=== PATIENT | male | born 1940 | race Caucasian/White ===

== ENCOUNTER → 2017-04-13 | Outpatient (CLI) | payer MEDICARE, OTHER ==
[~2017-04-13] MED LIST: AVALIDE 12.5 MG1 TAB PO; BACLOFEN 10MG T10 MG PO; DANTRIUM25 M1 PO; FLAGYL250 MG PO; K-DUR 2020 MEQ PO; LOMOTIL 0.025 M1 TAB PO; LOMOTIL 2.5MG.2.5 MG PO; METOPROLOL SUC100 M1 PO; NEURONTIN400 MG PO; NEURONTIN600 M1 PO; PAXIL20 MG PO; PLAVIX75 MG PO; QVAR8.7 G1 IH; TRAZODONE50 MG PO; TRICOR 145 MG145 MG PO; VANCOCIN HCL P250 MG PO; ZANTAC 150150 MG PO; ZOCOR40 MG PO
--- NOTE | 2017-04-13 13:00 | RADIOLOGY REPORT PS360 ---
CHEST-AP VIEW ONLY HISTORY: Infection with elevated white blood cell count BANDEMIA,hx of cva ORDERING PHYSICIAN: Sonam Laughlin MD PATIENT AGE: 76 years COMPARISON: 07/28/2016 FINDINGS: The cardiomediastinal silhouette and pulmonary vascularity are within normal limits. The lungs are clear without infiltrates, suspicious nodules, or pleural effusions. There is an old left proximal humerus fracture. There is mild prominence of the aortic knob. IMPRESSION: No change with no acute finding
--- NOTE | 2017-04-13 13:02 | RADIOLOGY REPORT PS360 ---
SINUS SERIES 3 VIEWS CLINICAL INDICATION: Related white blood cell count BANDEMIA ORDERING PHYSICIAN: Sonam Laughlin MD PATIENT AGE: 76 years COMPARISON: None TECHNIQUE:Axial, sagittal, and coronal images are generated and reviewed without contrast FINDINGS: Left maxillary sinus is opacified. The remaining sinuses have an unremarkable appearance. No acute bony anomalies. IMPRESSION: Left maxillary sinus sinus disease
--- NOTE | 2017-04-13 13:26 | CARDIOVASCULAR REPORT ---
"Venous Exam Indications: 729.5 Pain in limb. IMPRESSIONS Moderate deep vein thrombosis involving the left common femoral vein, left femoral vein, and left popliteal vein History: PMH: Deep vein thrombosis. Patient was diagnosed with a DVT at [facility] 01/2017. 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 Risk factors: Hypertension. Left lower extremity venous duplex evaluation. Doppler flow study including spectral analysis, color and dorsey scale imaging. Location: Vascular laboratory. Patient status: Outpatient. CRITICAL FINDINGS - Reported to: A - Read back and verified. - 04/13/17 - 13:15 - DVT seen in CFV, SFV, POPV Tables: Venous flow and imaging: + +-------+ + |Location |Overall|Flow properties | + +-------+ + |Left common femoral |-------|Partially compressible | + +-------+ + |Left saphenofemoral junction|Patent |Compressible | + +-------+ + |Left profunda femoral |Patent |Compressible | + +-------+ + |Left femoral |-------|Absent; not spontaneous; no | | | |augmentation; noncompressible | + +-------+ + |Left greater saphenous |-------| | + +-------+ + |Left popliteal |-------|Noncompressible | + +-------+ + |Left posterior tibial |Patent |Compressible | + +-------+ + |Left peroneal |Patent |Compressible | + +-------+ + |Left gastrocnemius |Patent |Compressible | + +-------+ + |Left soleal |Patent |Compressible | + +-------+ + (Report amended ) Electronically signed by: Celestino Callahan [id number]"
== END ==
LOC: RAD 11:56
DX: D72.825 Bandemia (principal); Z86.718 Personal history of other venous thrombosis and embolism